=== PATIENT | female | born 1980 | race Caucasian/White ===

== ENCOUNTER 2018-06-10 05:39 | Inpatient (IN) ==
[2018-06-10] MEDS ORDERED: Metoprolol Tartrate 25 MG Tablet PO SCH (07:45)
[2018-06-10] MEDS ORDERED: Chlorhexidine Gluconate 2% 1 Pack (2 Cloths) TOPICAL SCH (07:45)
[2018-06-10] MEDS ORDERED: Sodium Chlor 0.9% Inj 500 ML IV.SIG SCH (08:00)
[2018-06-10] MEDS ORDERED: ceFAZolin 2 GM IV; once IV.SIG SCH (08:15)
[2018-06-10] MEDS ORDERED: Neostigmine Inj 5 MG/5 ML Syringe IV.PUSH ONE (12:00)
[2018-06-10] MEDS ORDERED: Glycopyrrolate Inj 1 MG/5 ML Syringe IV.PUSH ONE (12:00)
[2018-06-10] MEDS ORDERED: Lidocaine PF 1% Inj 5 ML Syringe INFILTRATN ONE (12:00)
[2018-06-10] MEDS ORDERED: diphenhydrAMINE HCl 12.5 MG/5 ML Elixir UDC PO PRN (12:13)
[2018-06-10] MEDS ORDERED: Acetaminophen-HYDROcodone 325/7.5 Liq 15 ML UDC PO PRN (12:13)
[2018-06-10] MEDS ORDERED: Post-op Orders (for Pharmacy) OTHER STA (12:13)
[2018-06-10] MEDS ORDERED: Naloxone Inj 0.4 MG/ML Vial IV.PUSH PRN (12:18)
[2018-06-10] MEDS ORDERED: Morphine Inj 30 MG/30 ML PCA.VIAL PCA PRN (12:18)
[2018-06-10] MEDS ORDERED: *morphine SULFATE 4 MG/ML PERIprocedure ONLY ONE ×2 (12:41→13:15)
--- NOTE | 2018-06-10 12:41 | MP ---
cc: Teodoro De La Garza MD DATE OF OPERATION: 06/10/2018 PREOPERATIVE DIAGNOSIS: Morbid obesity with a body mass index of 46. POSTOPERATIVE DIAGNOSES: Morbid obesity with a body mass index of 46. PROCEDURE PERFORMED: Laparoscopic Gerry-en-Y gastric bypass, 100 cm Gerry limb, antegastric-antecolic. SURGEON: Teodoro De La Garza MD COMMERCIAL MAINTENANCE TECHNICIAN: Adan Fan MD. Dr. Fan assistance was necessary for this procedure due to the complexity of the procedure, Dr. Fan assisted with manipulation and exposure during the procedure. The executive assistant provided by the hospital was utilized managing the camera. ANESTHESIA: General endotracheal anesthesia. ESTIMATED BLOOD LOSS: Scant. FINDINGS: Fatty liver. SPECIMENS: None. COMPLICATIONS: None. OPERATION: The patient was brought to the operating room and placed on the operating table in supine position, bilateral sequential inflation device placed on lower extremities, general anesthesia instituted, antibiotics initiated. The abdomen was prepped and draped sterilely. A point 18-cm distal to the xiphoid in the midline anesthetized with 0.25% Marcaine with epinephrine. The skin incision was made, a 5-mm OptiView port placed under direct vision and pneumoperitoneum was created. Under direct vision a 5-mm left upper quadrant, 12-mm left upper quadrant, 12-mm right upper quadrant and 5-mm right upper quadrant ports were placed. Prior to placement of all ports, the skin and peritoneum were anesthetized with 0.25% Marcaine with epinephrine. The patient's omentum was lifted into the upper abdomen. It was split down the middle to create a path for the Gerry limb. The ligament of Treitz was identified, a point 40 cm distal identified. The small bowel was divided in this region using an Cloudcroft Flex stapler vascular load reinforced with Seamguard. The distal segment was brought up for a distance of 100 cm, enterotomy created in this region, enterotomy in the biliopancreatic limb and a [id number] stapled jejunojejunostomy created in the usual manner. The mesenteric defect at the jejunojejunostomy was closed with 2-0 Surgidac suture in a running manner. The patient was placed in reverse Trendelenburg position with the left side up. The Radha-Flex retractor was placed. The left lobe of the liver was retracted. The angle of His was taken down bluntly, a point 5 cm distal to the GE junction along the lesser curve identified, the lesser sac entered using blunt dissection. The stomach was partitioned horizontally using an Cloudcroft-Flex stapler blue load, an additional firing taken directed towards the angle of His to completely divide the stomach. A gastrotomy created in the new stomach, enterotomy in the Gerry limb and gastrojejunostomy created, stomal opening of 2 cm. An 18-Kyrgyz orogastric tube was placed across the anastomosis, the defect then closed in two layers of running 2-0 Vicryl. Prior to placement of the second layer, methylene blue instilled through the orogastric tube. There was no evidence of extravasation. Evicel was then placed over the gastrojejunostomy, jejunojejunostomy and all staple lines. The operative field inspected and hemostasis was present. The CO2 was released, all ports were removed. All skin incisions were closed with 4-0 Monocryl. The abdominal wall was cleaned and a sterile dressing placed. The patient was awakened and taken to the recovery room. MD HAYDE Isaacs/MAURICIO , 12:25 PM , 12:31 PM
[2018-06-10] MEDS: KCL 20 mEq/D5W/NaCl 0.45% Inj 1,000 ML IV.CONT SCH ×2 (13:10→21:15)
[2018-06-10] MEDS ORDERED: Enoxaparin Inj 40 MG/0.4 ML Syringe SQ ONE (14:00)
[2018-06-11 05:19] LABS: Baso % (Auto) 0.3 % (0.0-2.0); Eos % (Auto) 0.1 % (0.0-4.0); Hematocrit 42.3 % (35.0-46.0); Lymph # (Auto) 0.9 th/mm3 (1.0-4.8); Lymph % (Auto) 7.9 % (9.0-44.0); Mean Corpuscular Hemoglobin 28.1 pg (27.0-34.0); Mean Corpuscular Volume 85.2 fL (80.0-100.0); Mean Platelet Volume 10.9 fL (7.0-11.0); Mono # (Auto) 0.8 th/mm3 (0.0-0.9); Neut % (Auto) 84.7 % (16.0-70.0); Platelet Count 193 th/mm3 (150-450); Red Blood Count 4.97 mil/mm3 (4.00-5.30); Red Cell Distribution Width 13.2 % (11.6-17.2); White Blood Count 11.8 th/mm3 (4.0-11.0)
[2018-06-11 05:40] LABS: Calcium 8.1 mg/dL (8.5-10.1); Carbon Dioxide 24.4 meq/L (21.0-32.0); Magnesium 2.2 mg/dL (1.5-2.5); Potassium 4.5 meq/L (3.5-5.1)
[2018-06-11] MEDS: KCL 20 mEq/D5W/NaCl 0.45% Inj 1,000 ML IV.CONT SCH ×2 (10:03→16:07)
--- NOTE | 2018-06-11 15:42 | P.PNGS ---
Subjective Interval history: Pain and nausea well controlled Slowly increasing fluids Physical Exam Vital signs: Vital Signs 06/10/18 16:00 06/10/18 17:00 06/10/18 17:30 Temperature 98.0 F Pulse Rate 76 83 82 Respiratory Rate 17 17 14 Blood Pressure 126/64 112/57 L Pulse Oximetry 98 100 100 06/10/18 20:00 06/11/18 00:34 06/11/18 04:38 Temperature 97.6 F 98.1 F 97.9 F Pulse Rate 60 94 H 65 Respiratory Rate 18 18 20 Blood Pressure 143/64 H 135/79 131/71 Pulse Oximetry 95 95 100 06/11/18 08:00 06/11/18 12:00 Temperature 97.9 F 97.4 F L Pulse Rate 69 72 Respiratory Rate 17 17 Blood Pressure 123/59 L 126/58 L Pulse Oximetry 100 100 Intake & Output 06/10/18 06/11/18 06/11/18 18:59 06:59 18:59 Intake Total 1120 / 1120 1280 / 1280 1500 / 1500 Output Total 55 / 55 Balance 1065 / 1065 1280 / 1280 1500 / 1500 Weight 126.5 kg 133 kg Intake: IV 1000 / 1000 1100 / 1100 1500 / 1500 D5W/1/2NS + KCL 20 mEq Inj 1, 1000 / 1000 1000 / 1000 000 ML @ 125 mls/hr IV.CONT . Q8H ISAC Rx#:[id number] LR 1000 mL Inj 1,000 ML @ 30 800 / 800 mls/hr IV.SIG .Q24H ISAC Rx#: [id number] Ancef Inj 1,000 MG In NS Inj 100 / 100 100 / 100 100 ML @ 200 mls/hr IV.SIG Q8H ISAC Rx#:[id number] Flagyl 500 MG Inj 100 ML @ 200 100 / 100 100 / 100 100 / 100 mls/hr IV.SIG Q8H ISAC Rx#: [id number] Oral 120 / 120 180 / 180 Output: Urine 40 / 40 Estimated Blood Loss 15 / 15 Other: # Voids 4 Weight On Admission 126.5 kg Narrative: Laboratory Results - last 12 hr 06/11/18 06/11/18 04:37 04:37 WBC 11.8 H RBC 4.97 Hgb 14.0 Hct 42.3 MCV 85.2 MCH 28.1 MCHC 33.0 RDW 13.2 Plt Count 193 MPV 10.9 Neut % (Auto) 84.7 H Lymph % (Auto) 7.9 L Wilcox % (Auto) 7.0 Eos % (Auto) 0.1 Baso % (Auto) 0.3 Neut # (Auto) 10.0 H Lymph # (Auto) 0.9 L Wilcox # (Auto) 0.8 Eos # (Auto) 0.0 Baso # (Auto) 0.0 WBC Differential . Differential Comment Auto diff final Sodium 135 L Potassium 4.5 Chloride 104 Carbon Dioxide 24.4 Anion Gap 7 BUN 6 L Creatinine 0.89 Estimated GFR 71 L Random Glucose 128 H Calcium 8.1 L Magnesium 2.2 - Constitutional no acute distress - Routine Respiratory Exam Present: CTA bilaterally - Routine Cardiovascular Exam Present: RRR - Routine Abdominal Exam Present: tenderness (normal post-op tenderness, surgical incisions C/D/I ) Assessment and Plan - Assessment (1) Gastric bypass status for obesity Code(s): Z98.84 - Bariatric surgery status Status: Acute Onset Date: ~ - Plan D/C WELL LOGGER, transition to oral pain control Increase fluids as tolerated Continue with frequent ambulation Code Status: Full Discussed 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 I reviewed and agree with the findings presented. I attest that I had a [id number] encounter with the patient on the same day, and personally performed and documented my assessment and findings in the medical record.
== END 2018-06-11 18:39 | disposition home or self-care (01) ==
LOC: HSDC 05:39 → EDSTATUS 09:30 → HSDI 12:23 → N07 18:00
PROVIDERS: ADMIT Surgery; ATTEND Surgery